=== PATIENT | female | born 1990 | race Two or more races ===

== ENCOUNTER 2025-01-02 14:28 | Emergency (ER) | payer MEDICAID, SELFPAY ==
--- NOTE | 2025-01-02 14:54 | ED.GENADULT ---
HPI - General Adult General Chief complaint: Nausea/Vomiting/Diarrhea Stated complaint: vomiting Related Data Allergies Allergy/AdvReac Type Severity Reaction Status Date / Time No Known Allergies Allergy Verified 01/02/25 14:56 [facility] Social History Social History Advance Directives: No Advance Directives Information Provided: No Physical Exam ED Vital Signs: BMI result Body Mass Index 35.5 Course Course Course Narrative: This is an RME: Additional HPI, ROS, PE not included below will be deferred to primary provider. RME assessment and note performed by: Ambika Osman PA-C This is a [id number]-female, with a hx of hyperprolactinemia also high insulin on metformin, of who presents to the ER with complaints of vomiting. Reports that her symptoms started 1 month ago, reports that it is intermittent, every other day, predicting it will come back tomorrow. Plan: Labs, UA, further ER eval needed Reevaluation(s) Reevaluation #1: Patient left without completing treatment. Discharge Plan Discharge Clinical Impression: Diagnosis unknown Patient Disposition: Left W/O Completing Treatment Discharge Date/Time: 01/02/25 17:00
[2025-01-02 14:55] VITALS: BP 135/59; PULSE 88; RESP 16; TEMP 36.8; O2SAT 98; BMI 35.5
--- NOTE | 2025-01-02 15:07 | MHC.EDTECH ---
pt refusing tech to look at right arm to obtain labs, pt sent back to waiting room. pt states i have little veins so you can let someone else look . informed pt that this tech only looked at one location to obtain labs and pt still adamant and refusing.
== END 2025-01-02 17:00 | disposition left against medical advice (07) ==
PROVIDERS: Emergency Provider Emergency Medicine
DX: R11.10 Vomiting, unspecified (principal); Z53.21 Procedure and treatment not carried out due to patient leaving prior to being seen by health care provider
CPT/HCPCS: 99281